=== PATIENT | female | born 1955 | race Two or more races ===

== ENCOUNTER 2024-04-27 10:14 | Outpatient (CLI) | payer OTHER ==
[2024-04-27] MEDS ORDERED: JENTADUETO 2.51 EAC2 PO (11:09)
[2024-04-27] MEDS ORDERED: LOSARTAN-HCTZ1 EAC1 PO (11:09)
[2024-04-27] MEDS ORDERED: GLIMEPIRIDE2 M1 PO (11:09)
[2024-04-27] MEDS ORDERED: GRALISE600 MG PO (11:10)
[2024-04-27] MEDS ORDERED: ZOCOR20 MG PO (11:10)
[2024-04-27] MEDS ORDERED: RESTORIL30 M1 PO (11:10)
[2024-04-27] MEDS ORDERED: OMEGA-31000 MG PO (11:11)
== END 2024-04-27 15:27 | disposition home or self-care (01) ==
LOC: RAD 10:14
PROVIDERS: ATTEND Surgery Surgery of the Hand
DX: Z01.811 Encounter for preprocedural respiratory examination (principal)

== ENCOUNTER 2024-05-02 05:10 | Day surgery (SDC) | payer OTHER ==
[2024-04-27 11:11] VITALS: BP 128/80
[~2024-05-02] VITALS: Ht 162.6 cm; Wt 69.9 kg
[~2024-05-02 05:10] MED LIST: GLIMEPIRIDE2 M1 PO; GRALISE600 MG PO; JENTADUETO 2.51 EAC2 PO; LOSARTAN-HCTZ1 EAC1 PO; OMEGA-31000 MG PO; RESTORIL30 M1 PO; ZOCOR20 MG PO
[2024-05-02] MEDS ORDERED: CEFAZOLIN SODIUM 1,000 MG VIAL IV ONE (09:15)
== END 2024-05-02 11:05 | disposition home or self-care (01) ==
LOC: CIR.AMB 05:10
PROVIDERS: ATTEND Surgery Surgery of the Hand
DX: M67.843 Other specified disorders of tendon, right hand (principal); I10 Essential (primary) hypertension; E11.9 Type 2 diabetes mellitus without complications; E03.9 Hypothyroidism, unspecified